=== PATIENT | male | born 1960 | race Asian ===

== ENCOUNTER → 2024-04-11 14:52 | Outpatient (REF) | payer BC, SELFPAY | LOC: RCS 14:52 | PROVIDERS: ATTENDING PHYSICIAN Internal Medicine Cardiovascular Disease; FAMILY PHYSICIAN Family Medicine | DX: I35.0 Nonrheumatic aortic (valve) stenosis (principal) | CPT/HCPCS: 93306 ==

== ENCOUNTER → 2024-10-11 15:08 | Outpatient (REF) | payer BC, SELFPAY | LOC: RCS 15:08 | PROVIDERS: ATTENDING PHYSICIAN Internal Medicine Cardiovascular Disease; FAMILY PHYSICIAN Family Medicine | DX: I35.0 Nonrheumatic aortic (valve) stenosis (principal); I35.1 Nonrheumatic aortic (valve) insufficiency | CPT/HCPCS: 93306 ==

== ENCOUNTER → 2025-04-26 14:41 | Outpatient (REF) | payer MEDICARE, OTHER, SELFPAY | LOC: RCS 14:41 | PROVIDERS: ATTENDING PHYSICIAN Internal Medicine Cardiovascular Disease; FAMILY PHYSICIAN Family Medicine | DX: I35.0 Nonrheumatic aortic (valve) stenosis (principal) | CPT/HCPCS: 93306 ==

== ENCOUNTER → 2025-08-24 14:45 | Outpatient (REF) | payer MEDICARE, OTHER, SELFPAY | LOC: RAD 14:45 | PROVIDERS: ATTENDING PHYSICIAN Thoracic Surgery (Cardiothoracic Vascular Surgery); FAMILY PHYSICIAN Family Medicine | DX: I35.0 Nonrheumatic aortic (valve) stenosis (principal); Z01.810 Encounter for preprocedural cardiovascular examination | CPT/HCPCS: 74174; 75572; Q9967 ==

== ENCOUNTER 2025-10-05 09:29 | Inpatient (IN) | payer MEDICARE, OTHER, SELFPAY ==
--- NOTE | 2025-09-28 08:23 | HPS.HSE ---
Family Physician
-
Family Physician: Darshan Muir
Chief Complaint
-
PreTAVR evaluation
History of Present Illness
Mr. Santoyo is a 65-year-old male who previously saw Dr. Wharton in 2022. At that time he was discovered to have severe aortic valve stenosis with a mean gradient of 46 as well as concomitant moderate aortic valve insufficiency. He was very active at that
time and did experience some episodes of chest pain but otherwise was asymptomatic.At that point that he was a 2a indication for surgical intervention given his young age and part of his lifetime management and was recommended for surgical aortic
valve replacement with a bioprosthetic valve with eventual TAVR down the line when the valve failed. From previous notes, he was reluctant at that time given his work position and wanted to delay any intervention. He has since retired in March and
reached out to our office about having a follow-up consultation. Since his last consultation from a symptomatology standpoint he describes none. He speed walks 2 miles a day and says he feels fine doing so.�His baseline functional status remains the
same. Shared decision making is to still pursue AV intervention. His TAVR CT was completed and is ameanble to TAVR with favorable anatomy for Kaelyn later. The structural heart team is agreeable, TAVR first is reasonable. He was consented for both AVR
and TAVR - Dr. Wharton reviewed both in detail and went over the risks and benefits of either one. He understands that lifetime management is important in his age category and this will play into the decision making.
Assessed patient in preadmission testing and confirmed medication list. He will continue is 81 mg aspirin including the morning of TAVR and hold his fish oil starting 12/. He will arrive to the [facility] at 0930. Reviewed the risks of the
procedure as discussed in consult with Dr. Wharton including PPM, stroke, and vascular injury. Allowed for and answered questions.
Medical History
Past Medical History
Past Medical History: Reports Valvular Disease (aortic stenosis) and Other (hypoerlipidemia)
Past Surgical History: Reports Other (cataracts)
Social History
Tobacco: Non-smoker
Alcohol: Daily (one glass of wine)
Drug: None
Personal:
Living: With Family
Employment: Retired
Family History
Family History: Not pertinent
Allergies / Home Medications
Allergies reflects when Allergies were last updated in [facility].
NKDA
Home Medications with original date entered in [employer]
Aspirin 81(Aspirin) 81 MG Tablet Chewable 1 tablet Orally Twice a Day
Fish Oil 1000 MG Capsule 2 capsule Orally Once a day
Flax Seed Oil 1000 MG Capsule 2 capsules Orally Once a Day
Glucosamine Chond Complex/MSM([facility]) - Tablet 1 tablet Orally Twice a Day
Multivitamin(Multiple Vitamin) - Tablet 1 tablet Orally Once a day
Probiotic - Capsule 1 capsule Orally Twice a Day
Rosuvastatin Calcium 10 MG Tablet TAKE 1 TABLET BY MOUTH ONCE DAILY
Vitamin B Complex - Tablet as directed Orally
Allergy/Medication List:
NKDA
Review of Systems
-
History Source: Patient
A 12 point ROS was completed and negative except as noted: Yes
Physical Exam
Physical Exam
General: Well Developed, Well Nourished, No Apparent Distress and Comfortable
HEENT: NormoCephalic and Atraumatic
Respiratory: Clear
Cardiac: S1/S2, Regular Rhythm and Murmur (III/ SUKHJINDER)
Breast: Deferred by me
GI: Soft, Non Tender, Non Distended and Normal Bowel Sounds
Rectal: Deferred by Provider
Genito-urinary: Deferred by me
Musculoskeletal: No Edema and Normal Gait & Station
Skin: Warm and Dry
Neuro: Awake, Alert, Oriented and AO x 3
Psych: Calm
Data Reviewed
-
CT Scan: Report Reviewed by me and Discussed with Physician (reviewed TAVR CT scan with the heart team)
Medical Tests (Nuc Med, Echo, EKG etc): Report Reviewed by me and Discussed with Physician (Reviewed echocardiogram and cardiac catheterization with the heart team)
Lab Data: Labs Reviewed by me
Old Records: Reviewed
Impression/Plan
-
IMPRESSION/PLAN:
Aortic Stenosis
TF TAVR planned with Johnny Wharton and Zelda on 10/05/2025 utilizing a 29mm Evolut valve
POD #1/#30 echocardiogram
Continue aspirin
Cardiac rehab consult
Labs
-
Labs:
WBC 4.7 10^3/uL (4.8-10.8) L 09/28/25 12:
RBC 4.86 10^6/uL (4.70-6.10) 09/28/25 12:
Hgb 16.0 g/dL (13.0-18.0) 09/28/25 12:
Hct 44.1 % (39.0-52.0) 09/28/25 12:
Plt Count 160 10^3/uL (130-400) 09/28/25 12:
Sodium 137 mmol/L (135-145) 09/28/25 12:
Potassium 3.6 mmol/L (3.5-5.1) 09/28/25:
Chloride 102 mmol/L (98-107) 09/28/25 12:
Carbon Dioxide 27 mmol/L (22-30) 09/28/25 12:
BUN 19 mg/dl (9-20) 09/28/25 12:
Creatinine 0.8 mg/dL (0.7-1.3) 09/28/25 12:
eGFR > 60.00 09/28/25 12:
Glucose 121 mg/dl (70-99) H 09/28/25:
Calcium 9.7 mg/dl (8.4-10.2) 09/28/25 12:
Inx-V-Rdpomuicrwj Pept 84.7 pg/ml 09/28/25 12:
Albumin 4.8 g/dl (3.5-5.0) 09/28/25:
[2025-09-28 12:56] LABS: Hematocrit 44.1 % (39.0-52.0); Hemoglobin 16.0 g/dL (13.0-18.0); Mean Corp Hgb Conc. 36.3 g/dL (33.0-37.0); Mean Corpuscular Volume 90.7 fL (80.0-94.0); Nucleated Red Blood Cells % 0 % (-); Platelet Count 160 10^3/uL (130-400); Red Cell Dist. Width 12.1 % (11.5-14.5)
[2025-09-28 13:00] VITALS: BMI 26.3
[2025-09-28 13:27] LABS: ALT (SGPT) 36 U/L (0-50); AST (SGOT) 37 U/L (17-59); Albumin 4.8 g/dl (3.5-5.0); Alkaline Phosphatase 53 U/L (38-126); Blood Urea Nitrogen 19 mg/dl (9-20); Calcium 9.7 mg/dl (8.4-10.2); Carbon Dioxide 27 mmol/L (22-30); Chloride 102 mmol/L (98-107); Estimated Creatinine Clearance 83 ml/min; Glucose 121 mg/dl (70-99); Potassium 3.6 mmol/L (3.5-5.1); Sodium 137 mmol/L (135-145); Total Protein 7.8 g/dl (6.3-8.2); eGFR > 60.00
[2025-09-28 13:39] LABS: INR 1.14; PT 14.4 Sec (11.4-14.6)
[2025-09-28 14:07] LABS: Glycohemoglobin (HgbA1c) 5.1 % (4.0-5.9)
[2025-09-28 14:11] LABS: Urine Character Clear (Clear)
--- NOTE | 2025-09-28 14:14 | CM ---
Chart reviewed. Met with the patient in PAT. Reviewed preoperative and postoperative instructions and restrictions along with showering guidelines. Gave patient 2 soaps and TAVR Book. Patient is agreeable to a home visit by CT Transitional RN.
Patient is independent of ADLS, lives with his in a 2 STH, 0 NAOMI, 0 DME. Plan is for the patient to return home with CT Transitional RN.
[2025-09-28 15:58] LABS: Urine Squamous Cell 0-2 /LPF (Few)
[2025-09-28 15:59] LABS: Urine Red Blood Cell 0-2 /HPF (0-2); Urine White Cell 0-2 /HPF (0-5)
[2025-10-05] VITALS (21 sets, daily range): BP systolic 97–143; BP diastolic 64–107; BMI 26.2
[2025-10-05] MEDS: LOW STRENGTH ASPIRIN 81 MG PO (10:23)
--- NOTE | 2025-10-05 10:29 | W.CVOR.SURPR ---
CVOR Surgeon Immed Pre Op
-
I have examined this patient prior to performance of the scheduled procedure.
The patient's condition is unchanged from the time of the dictated/written History and
Physical and the patient is able to undergo the scheduled procedure.
TF TAVR Full Rescue
[2025-10-05] MEDS: ANCEF 10 IV (11:10)
[2025-10-05 12:07] LABS: ACT-LR - POC 369 Seconds (116-155)
[2025-10-05 12:36] LABS: ACT-LR - POC 310 Seconds (116-155)
--- NOTE | 2025-10-05 12:46 | W.PN.CT.SURG ---
CT Surgery Operative Note
-
OPERATIVE REPORT
Preoperative Diagnosis: Severe aortic valve stenosis, symptomatic
Postoperative Diagnosis: Same
Procedure(s) Performed: Right trans femoral TAVR with a 29 mm Medtronic Evolut FX+ device with pre and post deployment balloon valvuloplasty
Date of Procedure: 10/05/2025
Comorbidities:
1. Severe symptomatic aortic stenosis, critical levels
2. Hyperlipidemia
Cardiac Surgeon: Sony Wharton MD, MS
Fraud Analyst: Caesar Ndaiye MD
Anesthesia: Conscious Sedation, Local
EBL: 100cc
Products: none
Implant: Medtronic Evolut 29 mm FX+ SN: [id number]
Indication(s) for Procedures: 65-year-old male with critical aortic stenosis. Symptoms mostly included chest pain CT-TAVR protocol revealed acceptable anatomy for a self-expanding TAVR valve.
Start time: 1133hrs
Deployment time: 1209hrs
End time: 1235hrs
Radiation Dose (mGy): 217
DAP (cm2.Gy): 26.1
Fluoroscopy time (minutes): 17.3
Contrast volume (ml): 150
TAVR gradient (mmHg): 6mmHg
Heparin Dose: 7000units
Protamine Dose: 40mg
Final Valve Positioninmm:3mm
Findings: Preoperative LVEF was 60% and was 60% following TAVR without inotropic support. A predeployment balloon valvuloplasty was performed a 21 mm true size balloon function was overall normal without regional wall motion abnormalities or
dyskinesia. After initial deployment of the TAVR valve, there was at least a mild degree of paravalvular insufficiency in 2 locations. We opted to perform a post deployment balloon valvuloplasty using a 23 mm true size balloon. This was done
under rapid pacing at 200 bpm. Following this, the aortic valve was well seated with only trace PVL. 6 mmHg across the valve. The mean gradient was the patient did not require pacing postoperative and was in sinus rhythm. There was successful
placement of 29 mm Evolut FX+TAVR valve without acute complications.
Access:
1. Device -right common femoral artery, perclose x 2
2. Pigtail -left common femoral artery + 6Fr angioseal
3. Transvenous Pacer -left common femoral vein
Description of Procedure: The patient was taken to the wood and wood products labourer. Their identity and procedure to be performed were verified and they were positioned supine on the wood and wood products labourer table. Induction via conscious sedation with local analgesia. The patient was
then prepped and draped from chin to thigh in a sterile fashion. A preoperative time-out was performed with all members of the team present. Using fluoroscopy, bilateral femoral heads and their margins were identified. Arterial and venous access
were done with a micropuncture needle with Seldinger technique. Test pacing revealed capture with excellent threshold. Angiography confirmed proper puncture site and femoral artery integrity. Two Per-Close devices were used on the TAVR side. An AL1
catheter was used to deliver a extrastiff wire and insertion of the working sheath. An AL1 catheter with a straight stiff wire was used to access the LV. An LVEDP was then measured after exchanging for a pigtail catheter. The valve was prepped and
mounted on to the device carrier. An ACT of >250 was achieved. We verified x 3 under fluoroscopy that the valve was mounted correctly with paddles in appropriate position. At this point we performed a balloon valvuloplasty using a 21 mm true size
balloon under rapid pacing under 180 bpm. After cessation of pacing, the patient regained vital signs instability. We than set our parameters to achieve a co-planar view with the pigtail positioned in the NCC. We advanced the device with it's
in-line sheath into the descending thoracic aorta and over the arch into the root and positioned across the aortic valve. Contrast fluoroscopy was used to visualize the prosthesis across the valve. We performed a quick pre-deployment time out. We
verified positioning based on the pigtail and gentle contrast puffs. The valve was slowly deployed to just before annular contact. We paused here and verified positioning in our cusp overlap view. We then rotated [place] and removed any parallax from
the valve. It seemed relatively deep on the left side and so we partially recaptured and pulled back on the entire device system which appeared to be much better suited from a depth on both the noncoronary cusp and the left coronary cusp. We
slowly continued to deploy the valve until the crowns and paddles were free from the device. At this point the valve was functioning and pacing was stopped. We slowly continued to deploy the valve until the crowns and paddles were free from the
device. The deployment device was withdrawn into the descending thoracic aorta while maintaining wire access across the valve. A transthoracic echocardiogram was performed. The pigtail was re-positioned at the level of the crown of the valve and
angiography revealed excellent placement and seating of the valve at the annulus however there was at least a mild degree of paravalvular leak. We then exchanged the device with his inline sheath for the original 14 Ukrainian working sheath and we
used a pigtail to reflux across the TAVR valve and then exchanged this for a Lunderquist wire. A 23 millimeter true size balloon was then inserted and placed across the valve with approximate one third crossing the proximal and of the TAVR valve.
Under rapid pacing at 200 bpm we performed a balloon valvuloplasty with this 23 mm size balloon. Once cessation of pacing stopped, we had return of vital signs and appropriate hemodynamics. This resulted in a much better appearing valve with a
mean gradient of 6 and no to trace paravalvular leak. The working sheath was removed from the groin as we cinched down the perclose devices while maintaining wire access. There was acceptable hemostasis. The pigtail was repositioned into the
descending/abdominal and runoff aortogram was performed. There was no significant stenosis or dissection of the bilateral iliofemoral systems with excellent runoff to the SFAs. All wires were removed and perclose snugged and cut. There was
acceptable hemostasis of bilateral groins.
All instrument, sponge, and needle counts were confirmed to be correct x 2 at the end of the operation. The patient was transferred to the cardiac intensive care unit in stable condition.
I, Dr. Sony Wharton, was present, scrubbed for, and performed all critical elements of this procedure.
Sony Wharton MD, MS
Cardiothoracic Surgeon
[facility]
This operative dictation was created using the [employer] dictation system. Please excuse any grammatical, typographical, or 'sound alike' errors
--- NOTE | 2025-10-05 13:04 | ITS.CL.PN ---
Legislative Analyst - Procedure Note
Procedure
Procedure Note:
TRANSCATHETER AORTIC VALVE REPLACEMENT REPORT
Date of Procedure: 10/05/2025
Referring: Dr. Lorie Waldron MD
Indication: Symptomatic severe aortic valve stenosis
Operators: Mitch Ndiaye MD, PhD (interventional cardiology); Dr. Sony Wharton MD (CT surgery)
Anesthesia: conscious sedation provided by the anesthesia staff
PROCEDURE: transfemoral, transcatheter aortic valve replacement with a Medtronic Evolut FX+ 29mm valve
ACCESS:
1. 6F left femoral vein (closure: manual hemostasis) - Ultrasound was utilized for vascular access. The vessel was visualized under ultrasound and noted to be patent. An image of the vessel was stored permanently in the patient's medical record.
Under direct ultrasound guidance, vascular access was obtained using a modified Seldinger technique and a 6 Moldovan sheath was placed.
2. 6F left common femoral artery (closure: Angioseal) - Ultrasound was utilized for vascular access. The vessel was visualized under ultrasound and noted to be patent. An image of the vessel was stored permanently in the patient's medical record.
Under direct ultrasound guidance, vascular access was obtained using a modified Seldinger technique and a 6 Moldovan sheath was placed.
3. 14 F right common femoral artery (closure: Perclose x2) - Ultrasound was utilized for vascular access. The vessel was visualized under ultrasound and noted to be patent. An image of the vessel was stored permanently in the patient's medical
record. Under direct ultrasound guidance, vascular access was obtained using a modified Seldinger technique and a 6 Moldovan sheath was placed.
HEMODYNAMIC DATA
LVEDP 28 mmHg
PROCEDURE NARRATIVE:
The patient was prepped and draped in standard sterile fashion. Conscious sedation was provided by the anesthesia staff. 6F left femoral vein and left common femoral artery access was obtained with ultrasound guidance using micropuncture technique
with verification of appropriate arteriotomy location via hand injection angiography. A temporary venous pacing wire was advanced via the left femoral vein to the right ventricle under fluoroscopic guidance with appropriate capture verified. A 5F
pigtail catheter was advanced via the left common femoral artery and seated in the non-coronary cusp. Angiography was performed to verify the cusp overlap angle.
8F right common femoral artery access was obtained with ultrasound guidance using micropuncture technique with verification of appropriate arteriotomy location via hand injection angiography. The arteriotomy was preclosed with two Perclose sutures
followed by replacement of the 8F sheath. Using an AL1 catheter, a Lunderquist wire was placed in the descending thoracic aorta. A 12F dilator was advanced over the Lunderquist wire followed by placement of a 14F Cook sheath. Heparin 7000 units was
given. The AL1 catheter was re-advanced through the sheath to the level of the ascending aorta. The Lunderquist wire was exchanged for a soft tipped straight wire which was used to cross the aortic valve and deposit the AL1 in the LV apex. A J-wire
was used to exchange the AL1 for a pigtail catheter in the LV and LVEDP was measured. The Lunderquist wire was advanced through the pigtail catheter and seated in the LV apex. ACT was checked and confirmed to be >300 seconds.
A 21 mm True valvuloplasty balloon was advanced over the Lunderquist wire and into the aortic annulus. Valvuloplasty was performed under rapid pacing with good balloon expansion. The valvuloplasty balloon was removed.
The valve was inspected under fluoroscopy to confirm lack of infolding above the 4th node. The Cook sheath was removed, and the in-line sheath was advanced over the Lunderquist wire into the descending aorta. The valve was then advanced over the
aortic arch and into the left ventricle. In the cusp overlap view, the valve was slowly deployed to the point of flowering. The patient was paced to adequately lower pulse pressure as the valve was deployed through the rumble strips to 80%.
Injection demonstrated a non-coronary cusp implant depth of 2 mm. Angiography performed in an LIBYAN projection demonstrated left coronary cusp implant depth of 2 mm. The decision was made to proceed with full deployment. The Lunderquist wire was
partially withdrawn to lift the nose cone of the valve delivery device. In the LIBYAN view, the delivery handle was slowly rotated until both paddles were released from the superior aspect of the valve. The delivery device was withdrawn to the
descending aorta and re-assembled. The patient was resuscitated by anesthesia with recovery of adequate blood pressure. Telemetry demonstrating sinus rhythm. Aortography demonstrated good valve positioning, adequate coronary filling, and mild aortic
valve insufficiency. Echocardiography confirmed mild paravalvular leak at the muscular septum. Mean valve gradient was 8 mmHg. The decision was made to proceed with postdilation.
The valve delivery system was removed and replaced with the Cook sheath. The valve was recrossed with a pigtail catheter and J-wire which was exchanged for the Lunderquist wire in the LV apex. Under rapid cardiac pacing, a 23 mm true valvuloplasty
balloon was used to post dilate the valve. Repeat echocardiography demonstrated improvement of PVL to trace and improvement in gradient to 6 mmHg.
The Cook sheath was removed, and hemostasis obtained with the two Perclose sutures. Protamine 40 mg was given. Aortoiliac angiography demonstrated no evidence of iliofemoral dissection/perforation and good runoff below the common femoral artery
bilaterally. The pacemaker and the pigtail catheter were removed. The left femoral artery sheath was removed using a 6F Angioseal. The left femoral venous sheath was removed with manual pressure.
CONCLUSIONS
1. successful placement of a Medtronic Evolut FX+ 29mm transcatheter aortic valve (post-dilated with a 23 mm True balloon) via right transfemoral approach with no acute complications
2. acute on chronic systolic heart failure with elevated filling pressures (LVEDP = 28)
Copy to: Dr. Lorie Waldron MD (mail handler sorter); Dr. Darshan Muir DO (PCP)
Signed: Mitch Ndiaye MD, PhD
[2025-10-05] MEDS: ANCEF IV (13:09)
--- NOTE | 2025-10-05 13:46 | CM ---
Reviewed chart. Mr. Santoyo is in the operating room today. Prior to admission he resides with his spouse in a two story home without any steps to enter. Prior to admission he was independent in ambulation and adls. He does not have any DME in he home.
Medical work-up in progress. The discharge plan is to return home with his spouse and a home visit by the Transitional Care Nurse when medically stable.
[2025-10-05] MEDS: KCL 20 MEQ PO (17:29)
[2025-10-05] MEDS: LASIX 20 MG IV (17:29)
--- NOTE | 2025-10-05 18:55 | PTCARENOTE ---
Addendum entered by Zenobia Gorman RN 10/05/25 19:01:
R groin dressing still oozing scant amount. New pressure dressing applied, site soft with no hematoma noted.
Original Note:
~4812-2637: Patient received from [facility] in stable condition. AOx4, NSr 1st degree AVB 60s, SBP 100s, RA satting 94%. Pt does not c/o pain at this time. B/L groin punctures soft CDI. Patient informed he is bedrest until around 1600 and educated on
mobility restrictions. at bedside. HOB flat at this time. Admission charting completed and patient oriented to room and call khan system. All needs met at this time, call khan within reach.
~1303-2567: Groin sites remain soft. R groin has scant bleeding on the dressing, borders marked. Pt voided in urinal, I/Os charted. All needs met at this time, call khan within reach.
~[id number]: 20 IV lasix and 20mEq K+ given per order. Small amount of oozing noted on dressing, new border marked. Patient remains in bed, HOB raised to 30 degrees. Family at bedside. All needs met at this time, call khan within reach. Handoff
report given to nightshift RN.
--- NOTE | 2025-10-05 19:45 | PTCARENOTE ---
Received pt from day shift RN at 1900. Pt Aox4, VSS, B/L groin sites CDI, no bleeding, no hematoma, palpable pulses. No complaints of pain. OOB stand by assist. Call khan within reach. See flowsheet for further documentation.
[2025-10-05] MEDS: ANCEF 5 IV (20:06)
[2025-10-05] MEDS: CRESTOR 10 MG PO (22:43)
[2025-10-06] VITALS (7 sets, daily range): BP systolic 109–157; BP diastolic 76–94; PULSE 87; O2SAT 99; BMI 25.6
--- NOTE | 2025-10-06 03:20 | PTCARENOTE ---
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 Gave 10mg IV hydral and SBP improved. BP now 156/90.
[2025-10-06 04:21] LABS: Hematocrit 40.2 % (39.0-52.0); Hemoglobin 14.6 g/dL (13.0-18.0); Mean Corp Hgb Conc. 36.3 g/dL (33.0-37.0); Mean Corpuscular Volume 90.1 fL (80.0-94.0); Platelet Count 148 10^3/uL (130-400); Red Cell Dist. Width 12.1 % (11.5-14.5)
--- NOTE | 2025-10-06 05:26 | W.PN.CT ---
Today's Communication / Plan
-
-pod #1
-doing well, no issues overnight, no complaints
-nsr 60s-70s. No thuan or pauses
-ECG with nonspecific STTW abnorm, similar to preop
-LVEDP 28-diuresed with 20 iv Lasix (UO 1475)
-Echo today
-current meds (ASA, Crestor, Lasix)
-possible d/c
Assessment / Plan
-
- Severe symptomatic aortic valve stenosis - s/p Right trans femoral TAVR with a 29 mm Medtronic Evolut FX+ device with pre and post deployment balloon valvuloplasty on 10/05/25, pod #1
- Intraop TTE: Preoperative LVEF was 60% and was 60% following TAVR without inotropic support, no regional wma or dyskinesia. The aortic valve was well seated with only trace PVL, mean gradient 6 mmHg across the valve.
- Acute on chronic diastolic heart failure with elevated filling pressures (LVEDP = 28)- diuresed with 20 iv Lasix
- HLD
- Cataract surgery
- Seasonal allergy
Discussed patient care with: Nursing and Care Team
Subjective
-
Date of Service: October 06, 2025
Objective Data
-
Lab Results
10/06/25 04:08
PT 14.4 Sec (11.4-14.6) 09/28/25 12:29
INR 1.14 09/28/25 12:29
Vital Signs
Vital Signs
Temp Pulse Resp BP Pulse Ox
98.1 F 75 18 113/78 97
10/06/25 03:56 10/06/25 04:00 10/06/25 03:56 10/06/25 04:00 10/06/25 04:00
CT Intake/Output/Weight
12/11/25 12/11/25 12/12/25
06:59 18:59 06:59
Intake Total 500 / 500
Output Total 1475 / 1475
Balance -975 / -975
SaO2: 97
Physical Exam
-
General: Awake and AOx3
Cardiovascular: Regular rate & rhythm, No Murmurs and No Rub
Respiratory: Decreased Breath Sounds
Sternum: Stable
Incision: Clean (groins are cdi, soft, nontender, no hematoma b/l)
Extremities: No Edema (2+ DPs b/l)
Abdomen: soft, nontender, nondistended, + bowel sounds
Data Reviewed
-
Lab Results: Results Reviewed
Medications: Active Meds Reviewed
Chest X-Ray: Report Reviewed and Image Reviewed
ECG: Report Reviewed and Image Reviewed
[2025-10-06 05:31] LABS: Hepatitis C Antibody Negative (Negative)
[2025-10-06 05:47] LABS: Blood Urea Nitrogen 15 mg/dl (9-20); Calcium 8.9 mg/dl (8.4-10.2); Carbon Dioxide 23 mmol/L (22-30); Chloride 104 mmol/L (98-107); Estimated Creatinine Clearance 111 ml/min; Glucose 97 mg/dl (70-99); Magnesium 2.1 mg/dl (1.6-2.3); Sodium 136 mmol/L (135-145); eGFR > 60.00
[2025-10-06 05:53] LABS: Potassium 4.1 mmol/L (3.5-5.1)
--- NOTE | 2025-10-06 07:21 | W.PN.ANS.POP ---
Anesthesia Post Operative
- Anesthesia Post Op Note
Vital Signs Stable-See Nursing Note: Yes
Airway Patent: Yes
Adequate Pain Control: Yes
Change in Mental Status: No
Current Postoperative Nausea & Vomiting: No
Anesthesia Complications: No
General Anesthetic Recall: No
Unplanned Admission: No
Post Op Hydration Adequate: Yes
--- NOTE | 2025-10-06 07:45 | PTCARENOTE ---
Assumed care of pt from prev nsg shift; Pt AAOx3 & denies CP or SOB. Pt's VSS w/HR in the 70's and BP 134/76 this AM. Pt is SR on telemetry monitoring. Pt w/bilat groin sites w/dressings C/D/I & no signs or symptoms of bleeding or hematoma. Pt
awaiting ECHO this AM. Pt w/call khan within reach & no addtl needs at this time. Plan of care ongoing.
--- NOTE | 2025-10-06 09:27 | CM ---
Reviewed chart. Met with Mr. Santoyo to review discharge plans. He states he is feeling well and maybe able to go home soon. He states prior to admission he resides with his spouse in a two story home with two steps to enter. . He states he has a full
flight of steps to get to bedroom/full bathroom. He states he has a powder room on the first floor. He states prior to admission he was independent with ambulation and adls. He states he does not have any DME in the home. He states he has a
prescription plan and [facility]. He states his spouse will be home over the weekend to assist in his care if needed. We reviewed a home visit by the Transitional Care Nurse. He is agreeable to a home visit. Medical work-up in progress. The
discharge plan is to return home with his spouse and a home visit by the Transitional Care Nurse when medically stable.
[2025-10-06] MEDS: LOW STRENGTH ASPIRIN 81 MG PO (09:28)
[2025-10-06] MEDS: LASIX 20 MG PO (09:28)
--- NOTE | 2025-10-06 10:36 | W.DCSUMMARY ---
Discharge Summary
Discharge Data
Date of Admission: 10/05/25
Date of Discharge: 10/06/25
-
Pending Results: No
Hospital Course
Primary care physician: Dr. Darshan Paz
Outpatient furniture removalist: Dr. Donita Waldron
Inpatient consultants: [facility]
Procedures:
1. Right Transfemoral TAVR with 29 mm Medtronic Evolut FX+ device with pre an dpost deployment balloon valvuloplasty on 10/05/[address] Mitch Ndiaye and Dr. Sony Wharton
Primary Diagnosis:
1. Symptomatic, Severe Aortic Stenosis
Secondary Diagnoses:
1. Acute on chronic diastolic heart failure with elevated filling pressures (LVEDP 28)
2. HLD
3. Catract Surgery
4. Seasonal surgery
HPI: Mr Shayne Santoyo is a 65-year-old male with known progressive aortic stenosis who presented for outpatient consultation with the Structural Heart Team at [facility] with complaints of chest tightness. He was determined suitable for TAVR.
Hospital course: On 10/05/25, patient was electively admitted and underwent TAVR via right femoral artery with successful placement of Medtronic Evolut FX+ [address] Micth Ndiaye & Dr. Sony Wharton. Please see interventionalist and
surgeons postoperative notes for complete details of procedure. Intraoperative, there were no significant events, LVEDP was reported to be 28 in which he received Lasix 20 mg IV x 1 with good response. The patient went directly to the electrical laboratory technician
recovery following the procedure without requirements of vasopressor support. Intraoperative TTE reported preoperative LVEF of 60% and 60% following TAVR without inotropic support, NRWMA or dyskinesia, well-seated AV with trace PVL, MG 6.
Postoperative EKG reported NSR, rate in 60's, with nonspecific ST abnormality. Bilateral ground sites remained stable and he was transferred to the Interventional Unit for the remainder of his recovery.
On postoperative day 1, CXR reported no acute disease of the chest and possible mild COPD. EKG showed normal sinus rhythm in 70's with nonspecific T-wave abnormality which was not a change. He was diuresed with Lasix 20 mg PO. Repeat TTE reported
LVEF of 60-65%, AV PG/MG of 16/8, respectively, mild PVL, and no signs of pericardial effusion. He was tolerating his diet, ambulating in the hallways, and suitable for discharge. His procedural sites were intact without hematoma. Education was
provided for outpatient wound care and management. Prior to discharge, his weight was 71.8 kg from 73.6 kg preoperatively. He was initiated on ASA 81 mg daily for blood clot prevention with prosthetic TAVR valve. He was education on the need for
antibiotics prior to any dental procedures for endocarditis prophylaxis. His discharge plan is to home with his spouse. He will be followed by the Transitional Care Nursing team within 2-3 days from discharge. A TTE was scheduled to be obtained
within 30-days from TAVR with outpatient follow-up with his primary furniture removalist. He was recommended to follow-up with his PCP within 4-6 weeks from her procedure. Patient was provided information regarding initiation of Cardiac Rehabilitation
within 4-6 weeks from procedure following outpatient follow-up
Home medication changes:
- ASA 81 mg daily added s/p TAVR
- Will need antibiotics prior to dental procedures for endocarditis prophylaxis
Discharge Plan
-
Patient Disposition: Home (Routine Discharge)
Discharge Diagnosis/Procedures: Severe, Symptomatic Aortic stenosis s/p Right Transfemoral TAVR (29 mm Medtronic Evolut FX+) on 10/05/[address] Mitch Ndiaye & Dr. Sony Wharton
Condition: Good
Diet: Low Fat, Low Cholesterol and 2 Gram Sodium
Activity: As tolerated
Additional Activity: No heavy lifting anything greater than 10 pounds for 1-week while procedural sites heal.
May do stairs as tolerated.
Driving Restrictions: No driving for 1 week
Bathing Restrictions: OK to Shower
Others Tests: 30-day follow up echocardiogram: 11/06/2025 @ 10:20 at [facility].
Other Services: Cardiac Rehab
Wound Care: Please do not apply lotions, creams or powders to groin areas.
Please monitor for increased pain, swelling, redness or drainage.
Please notify your doctor if any occur.
Shower daily with soap & water.
Do not use bathtub, hot tub, pool, ect for 1-week following your procedure.
Specialty Instructions: Weigh Daily- Call MD for wt gain/loss 3 lbs overnight/5 lbs in 1 week
Activity Restrictions/Additional Instructions:
Please obtain antibiotics from your Drug Abuse Worker prior to any dental procedures, including routine cleanings, due to your new heart valve for infection prevention.
Referrals:
CT Transitional Care Nurse [Outside] - in one to two days
Referral Note:
The Cardiothoracic Transitional Care Nurse will call you to set up a visit in 1-2 days.
[facility]. Cardiac Rehab [Outside] - 11/07/25 1:00 pm
Referral Note: Cardiac Rehab Orientation appointment is on 11/07/25 at 1pm.
The Cardiac Rehab gym is located on the first floor of the [facility].
Halina Lanza CRNP [Specified Professional Personl, Cardiology] - 11/24/25 10:40 am
Darshan Muir DO [Family Provider, Family Practice] - in four to six weeks
Referral Note: Please make an appointment in four to six weeks.
Prescriptions:
New
acetaminophen 325 mg Tablet
650 mg PO Q6HPRN PRN (Reason: Headache, mild pain, or fever >101F) Qty: 0 0RF
aspirin 81 mg Tablet,Chewable
81 mg PO DAILY Qty: 0 0RF
Continued
rosuvastatin 10 mg tablet
10 mg PO HS
Discharge Orders:
Discharge Patient (As Directed); Ordered 10/06/25
Ordered By: Zaina Bose
Care Plan Goals
Care Plan Goals:
Problem: Readiness for enhanced knowledge related to diagnosis and treatment plan
Goal: Understand your diagnosis and treatment plan needs, including medications if applicable.
Instructions: Know your diagnosis, underlying causes and treatment plan options, including medications if applicable. Consult with your health care team to learn about your diagnosis and treatment plan, including medications if applicable.
Discharge Date and Time
Print Language: ROMANIAN
--- NOTE | 2025-10-06 14:05 | W.PN.CD ---
Today's Communication / Plan
-
stable for discharge
Impression / Plan
-
Mr. Santoyo is a 65 year old man with past medical history of severe symptomatic aortic valve stenosis now status post TF TAVR (29 mm Medtronic Evolut, post dilated with a 23 mm True balloon). He is doing very well POD 1. Diuresed well for high LVEDP in
room (28 mmHg). No dyspnea, lightheadedness. Groins stable. Tele with no events. Labs stable. CXR clear. Echo:
SUMMARY
1. Normal left ventricular size and systolic function. Left ventricular ejection fraction is 60-65%.
2. 29 mm Medtronic Evolut transcatheter aortic valve replacement. Mild aortic regurgitation. Peak/mean gradients across the aortic valve are 16/8 mmHg respectively.
3. There is no evidence of pericardial effusion.
Plan:
Stable for discharge.
Cont. ASA/statin
Echo in 1 month
Physical Exam
Vital Signs/Labs
Vital Signs
Temp Pulse Resp BP Pulse Ox
37.2 C 71 17 132/78 96
10/06/25 11:40 10/06/25 11:08 10/06/25 11:40 10/06/25 11:08 10/06/25 11:40
10/05/25 10/06/25 10/07/25
06:59 06:59 06:59
Actual Weight 71.8 kg
10/06/25 04:08
10/06/25 05:02
PT 14.4 Sec (11.4-14.6) 09/28/25 12:29
INR 1.14 09/28/25 12:29
Magnesium 2.1 mg/dl (1.6-2.3) 10/06/25 05:02
09/28/25
12:29
Cpn-K-Epanuyoenhm Pept 84.7
Physical Exam
Constitutional: Comfortable
Cardiovascular: Rhythm & rate is regular
Respiratory: Respiratory effort normal
Neuro/Psych: AO x 3
Data Reviewed
-
Date of Service: October 06, 2025
Medical Decision Making: Reviewed Test Results
EKG: Tracing Personally Visualized and interpreted
Echo: Tracing Personally Visualized and interpreted
X-Ray/CT/US/MRI/NUC/PET: Image Personally Visualized and interpreted
Labs: Labs Reviewed by me
--- NOTE | 2025-10-06 14:36 | PTCARENOTE ---
Pt's IV lines & telemetry pack D/C'd. D/C instructions discussed w/pt & pt's spouse. Pt escorted out via WC w/spouse driving pt home. 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
== END 2025-10-06 14:38 | disposition home or self-care (01) | DRG 266 ==
LOC: IVU 09:29
PROVIDERS: ADMITTING PHYSICIAN Thoracic Surgery (Cardiothoracic Vascular Surgery); FAMILY PHYSICIAN Family Medicine
PROC: 02RF38Z Replacement of Aortic Valve with Zooplastic Tissue, Percutaneous Approach (ICD-10-PCS; 2025-10-05)
DX: I35.0 Nonrheumatic aortic (valve) stenosis (principal); Z00.6 Encounter for examination for normal comparison and control in clinical research program; I50.33 Acute on chronic diastolic (congestive) heart failure; I35.1 Nonrheumatic aortic (valve) insufficiency; H26.9 Unspecified cataract; E78.5 Hyperlipidemia, unspecified; Z79.82 Long term (current) use of aspirin
CPT/HCPCS: 33361; 36415; 71045; 71046; 80048; 80053; 81003; 81015; 82248; 83036; 83735; 83880; 85025; 85027; 85347; 85610; 86803; 86850; 86900; 86901; 87070; 93005; 93308; 93321; 93325; C1760; C1769; C1894; Q9967